=== PATIENT | male | born 1985 | race Caucasian/White ===

== ENCOUNTER → 2021-05-09 | Outpatient (CLI) | payer OTHER ==
--- NOTE | 2021-05-09 13:27 | US ---
EXAMINATION TYPE: US venous doppler duplex LE RT DATE OF EXAM: 05/09/2021 1:11 PM COMPARISON: NONE CLINICAL HISTORY: K40.90 DIRECT INGUINAL HERNIA RT SIDE,I83.93 VERICOSE VEINS. lump right groin for 2 months. history of superficial thrombus SIDE PERFORMED: right TECHNIQUE: The lower extremity deep venous system is examined utilizing real time linear array sonog kiya with graded compression, doppler sonography and color-flow sonography. VESSELS IMAGED: Common Femoral Vein Deep Femoral Vein Greater Saphenous Vein * Femoral Vein Popliteal Vein Small Saphenous Vein * Proximal Calf Veins (* superficial vessels) Right Leg: no evidence of DVT, superficial thrombus noted right GSV IMPRESSION: 1. No diagnostic evidence of DVT 2. Exam positive for superficial thrombosis in the right greater saphenous vein
--- NOTE | 2021-05-09 13:31 | US ---
EXAMINATION TYPE: US groin RT DATE OF EXAM: 05/09/2021 COMPARISON: NONE CLINICAL HISTORY: K40.90 DIRECT INGUINAL HERNIA RT SIDE,I83.93 VERICOSE VEINS. lump right groin. hist ory of superficial thrombosis scanned within patient's area of concern, right groin, superficial thrombus noted right GSV extending from groin to above knee IMPRESSION: 1. Palpable abnormality corresponds to BE distended thrombosed greater saphenous vein. This is near i ts confluence with the common femoral vein. No definite thrombosis within the common femoral vein alt [facility] patient would be at risk for extension of thrombus.
== END | disposition home or self-care (01) ==
LOC: RADUSWWP 12:41
PROVIDERS: ATTEND Family Medicine
DX: I82.811 Embolism and thrombosis of superficial veins of right lower extremity (principal); K40.90 Unilateral inguinal hernia, without obstruction or gangrene, not specified as recurrent